=== PATIENT | male | born 1955 | race Caucasian/White ===

== ENCOUNTER 2022-04-18 06:08 | Observation (INO) ==
--- NOTE | 2022-03-28 09:15 | PAT Medication Instructions ---
Medication Instructions Date of Service March 28, 2022 Home Medications ascorbic acid (vitamin C) 500 mg tablet (Vitamin C) 500 mg PO QAM aspirin 81 mg tablet,delayed release 81 mg PO Q OTHER DAY atenolol 25 mg tablet 25 mg PO QAM bupropion HCl 150 mg tablet,12 hr sustained-release 150 mg PO QAM famotidine 20 mg tablet 20 mg PO BID loratadine 10 mg tablet 10 mg PO QAM multivitamin 1 tab PO QAM losartan 25 mg tablet 25 mg PO QAM ASK your prescriber and surgeon aspirin 81 mg tablet,delayed release 81 mg PO Q OTHER DAY DO NOT take the morning of surgery ascorbic acid (vitamin C) 500 mg tablet (Vitamin C) 500 mg PO QAM loratadine 10 mg tablet 10 mg PO QAM multivitamin 1 tab PO QAM losartan 25 mg tablet 25 mg PO QAM Take morning of surgery With a small sip of water, OTHERWISE NOTHING TO EAT OR DRINK AFTER MIDNIGHT: atenolol 25 mg tablet 25 mg PO QAM bupropion HCl 150 mg tablet,12 hr sustained-release 150 mg PO QAM famotidine 20 mg tablet 20 mg PO BID Take evening before surgery famotidine 20 mg tablet 20 mg PO BID Other Notes If you have any questions please call us at [phone] or [phone] or [phone] or [phone]
--- NOTE | 2022-04-04 11:26 | Anesthesiology Consultation ---
Date of Service April 04, 2022 Assessment & Plan (1) Encounter for pre-operative examination: - COVID screening: Per assessment on 04/04: No known COVID-19 positive contacts or current COVID-19 related symptoms. Travel screen negative x 2+ weeks. Patient vaccinated. Patient was Covid positive 02/15/22 (home test). Symptoms at time: severe headache, dry cough, mild fever, nasal congestion/head pressure, slight fatigue > resolved except occasional residual cough. Covid test done 04/04 ([facility]) was negative. - *Strong gag reflex* per pt - Positioning concern: Pt reports breakthrough acid reflux. Requests not laying completely flat when possible. Also requests preoperative acid reflux medication if possible. Chart Review Chart Review: Acceptable Risk for Surgery and Patient seen in Pre Admission Testing Teaching & Discussion Pre-Anesthesia Teaching/Discussion Notes: Instructed NPO after midnight before surgery,except medications with 15 cc of water. Medication instructions provided according to the PAT guidelines. History Surgery Operation Date: 04/18/22 07:45 Proposed Procedures p C5-C7 Anterior Cervical Discectomy and Fusion, Spinal Cord Monitoring - Jacob Claudio DO Height/Weight Height: 5 ft 7 in Weight: 87.5 kg Allergies Allergy/AdvReac Type Severity Reaction Status Date / Time indomethacin AdvReac Intermediate "Drunk" Verified 03/30/22 11:36 feeling Medications Home Medications Medication Instructions Recorded Confirmed Last Taken ascorbic acid (vitamin C) 500 mg 500 mg PO QAM 10/04/20 03/24/22 11/09/20 tablet (Vitamin C) aspirin 81 mg tablet,delayed 81 mg PO Q OTHER DAY 10/04/20 03/24/22 11/08/20 release atenolol 25 mg tablet 25 mg PO QAM 10/04/20 03/24/22 11/10/20 05:45 bupropion HCl 150 mg tablet,12 hr 150 mg PO QAM 10/04/20 03/24/22 11/09/20 sustained-release famotidine 20 mg tablet 20 mg PO BID 10/04/20 03/24/22 11/09/20 loratadine 10 mg tablet 10 mg PO QAM 10/04/20 03/24/22 11/09/20 multivitamin 1 tab PO QAM 10/04/20 03/24/22 11/09/20 losartan 25 mg tablet 25 mg PO QAM 03/24/22 03/24/22 Unknown Past Medical History Medical History (Updated 04/04/22 @ 11:35 by Kinjal Goldberg) Anxiety GERD (gastroesophageal reflux disease) Hiatal hernia History of COVID-19 Covid positive 02/15/22 (home test), Symptoms at time: severe headache, dry cough, mild fever, nasal congestion/head pressure, slight fatigue > resolved except occasional residual cough Covid positive 04/2021 Hyperlipidemia no meds Hypertension Schatzki's ring Exercise / Class Metabolic Activity II 4-5 Yardwork/Stairs/Walk up hill (one FS (no CP, no SOB)) Past Family History Family History Son Diabetes Other No family history of adverse response to anesthesia Past Surgical History Surgical History H/O bilateral inguinal hernia repair History of carpal tunnel surgery of right wrist History of cataract surgery R/L History of colonoscopy History of esophagogastroduodenoscopy (EGD) with dilation History of repair of rotator cuff R/L History of tooth extraction Hx of vasectomy Past Anesthesia History No Hx of Anesthesia Complications and No Family Hx of Anesthesia Complications History of PONV No Hx of PONV and Hx of Motion Sickness Social History Smoking Status: Never smoker Do You Dip or Chew Tobacco: No Hx Alcohol Use: No Hx Substance Use: No substance use type: does not use Review of Systems Residual rare dry cough since 01/2022 Covid infection. Patient denies chest pain, shortness of breath, dyspnea on exertion, fever, chills, wheezing, palpitations. Physical Exam Vital Signs VITALS BP 145/90 P 66 TEMP 98.7 SP02 98%RA RESP 16 PHYSICAL Significantly decreased cervical extension range of motion. Full TMJ range of motion. TMD 3 finger breaths Mallampati Score 3 Dentition: several missing sides/molars Lungs: clear throughout to auscultation Cardiac: regular rate and rhythm, no murmurs noted Spine: normal Carotid arteries: negative bruit Extremities: no edema Lab Results Anesthesia Preop Results Results Anesthesia Widget: WBC 7.56 K/ul (4.8-10.8) 04/04/22 Hgb 15.5 g/dl (14.0-18.0) 04/04/22 Hct 44.6 % (40.1-51.0) 04/04/22 Plt 330 K/uL (130-400) 04/04/22 Na 136 mmol/L (136-145) 04/04/22 K 4.2 mmol/L (3.5-5.1) 04/04/22 Cl 105 mmol/L (98-107) 04/04/22 CO2 25 mmol/L (21-32) 04/04/22 BUN 20 mg/dl (6-23) 04/04/22 Creat 0.95 mg/dl (0.6-1.4) 04/04/22 Glucose Level 98 mg/dl (70-99(Fasting)) 04/04/22 PT 10.0 Seconds (9.0-12.0) 04/04/22 PTT 25.9 Seconds (21.0-31.0) 04/04/22 INR 0.9 (0.9-1.1) 04/04/22 Urine Color Yellow 04/04/22 Urine Appearance Clear (Clear) 04/04/22 Urine pH 7.0 (4.5-7.5) 04/04/22 Urine Specific [place] 1.020 (1.000-1.030) 04/04/22 Urine Protein Negative (Negative) 04/04/22 Urine Glucose (UA) Negative (Negative) 04/04/22 Urine Ketones Negative (Negative) 04/04/22 Urine Blood Negative (Negative) 04/04/22 Urine Nitrite Negative (Negative) 04/04/22 Urine Bilirubin Negative (Negative) 04/04/22 Urine Urobilinogen Negative (Negative) 04/04/22 Urine Leukocyte Esterase Negative (Negative) 04/04/22 Blood Type A Positive 04/04/22 Antibody Screen NEGATIVE 04/04/22 Testing Electrocardiogram Date: 04/04/22 Findings: + NSR @ (61) Chest X-Ray Date: 04/04/22 FINDINGS: PA and lateral chest radiographs are compared to study dated 04/12/2012. The cardiomediastinal silhouette is unremarkable noting atherosclerotic calcification of the thoracic aorta. The lungs and pleural spaces are clear. There is no pneumothorax. The bony thorax appears intact. IMPRESSION: No active disease in the chest. Stress Test Date: 06/02/20 Type: exercise Treadmill exercise test was normal. Mild hypertension was noted at baseline, with appropriate blood pressure response to exercise. 15 minutes. Occasional PACs with stress. COVID-19 Risk Screen Screening Information COVID-19 Screen Date: 04/04/22 Exposure 21 Days Family/Household +COVID Last 21 Days: No Exposure 10 Days Any COVID Exposure Last 10 Days: No Symptoms Last 10 Days Experienced COVID Sx Last 10 Days: No + COVID 0-90 Days COVID + in Last 0-90 Days: Yes + COVID Test 0-10 Day: No + COVID Test 11-90 Day: Yes
[~2022-04-18 06:08] MED LIST: ACETAMINOPHEN 500 MG TAB PO SCH; CeleBREX 200 MG CAP PO SCH; GABAPENTIN 600 MG DOSE PO SCH; LR 15ML/HR IV SCH; ceFAZolin 2000MG 2,000 MG/15 ML SYR IV SCH
[2022-04-18] MEDS ORDERED: ROCURONIUM BROMIDE 10 MG/ML 5 ML VIAL IV ONE ×5 (06:55→06:56)
[2022-04-18] MEDS ORDERED: LIDOCAINE 2% 20 MG/ML 5 ML SYR IV ONE (06:55)
[2022-04-18] MEDS ORDERED: PROPOFOL IV EMULSION 10 MG/ML 20 ML VIAL IV ONE (06:55)
[2022-04-18] MEDS ORDERED: MIDAZOLAM HCL 1 MG/ML 2ML VIAL ONE (06:56)
[2022-04-18] MEDS ORDERED: fentaNYL citrate 100 MCG/2 ML VIAL ONE (06:56)
[2022-04-18] MEDS ORDERED: ceFAZolin 330 MG/ML 1 GM VIAL ONE (07:07)
[2022-04-18] MEDS ORDERED: KETAMINE 50 MG/5 ML SYRINGE ONE (07:29)
[2022-04-18] MEDS ORDERED: HYDROmorphone INJ 1 MG/ML SYRINGE IV PRN ×2 (07:31→11:22)
[2022-04-18] MEDS ORDERED: ATROPINE SULFATE 0.1 MG/ML 10ML SYR IV PRN (07:31)
[2022-04-18] MEDS ORDERED: ONDANSETRON INJ 2 MG/ML 2 ML VIAL IV PRN ×2 (07:31→11:22)
[2022-04-18] MEDS ORDERED: ePHEDrine sulfate 50 MG/ML AMP IV PRN (07:31)
--- NOTE | 2022-04-18 07:35 | History & Physical Bridge Note ---
Date of Service April 18, 2022 History & Physical Bridge Note I have examined the patient, reviewed the History & Physical and in the interval since the performance of the History & Physical I have noted the following changes of clinical significance: no changes noted
--- NOTE | 2022-04-18 07:36 | History & Physical Report ---
Date of Service April 18, 2022 Assessment & Plan (1) Herniation of cervical intervertebral disc with radiculopathy: Plan: C5-C7 anterior cervical discectomy and fusion History of Present Illness Chief Complaint: Neck and arm pain Primary Care Provider: Ismael Grossman MD This is a 66-year-old male presents with chronic persistent neck and arm symptoms with failed course of nonoperative care is here for surgical invention. Allergies Allergy/AdvReac Type Severity Reaction Status Date / Time indomethacin AdvReac Intermediate "Drunk" Verified 04/18/22 06:36 feeling Home Medications Medication Instructions Recorded Confirmed Type ascorbic acid (vitamin C) 500 mg 500 mg PO QAM 10/04/20 04/18/22 History tablet (Vitamin C) aspirin 81 mg tablet,delayed 81 mg PO Q OTHER DAY 10/04/20 04/18/22 History release atenolol 25 mg tablet 25 mg PO QAM 10/04/20 04/18/22 History bupropion HCl 150 mg tablet,12 hr 150 mg PO QAM 10/04/20 04/18/22 History sustained-release famotidine 20 mg tablet 20 mg PO BID 10/04/20 04/18/22 History loratadine 10 mg tablet 10 mg PO QAM 10/04/20 04/18/22 History multivitamin 1 tab PO QAM 10/04/20 04/18/22 History losartan 25 mg tablet 25 mg PO QAM 03/24/22 04/18/22 History Past Med/Surg History Medical History (Updated 04/18/22 @ 07:35 by Jacob Claudio DO) Anxiety GERD (gastroesophageal reflux disease) Hiatal hernia History of COVID-19 Covid positive 02/15/22 (home test), Symptoms at time: severe headache, dry cough, mild fever, nasal congestion/head pressure, slight fatigue > resolved except occasional residual cough Covid positive 04/2021 Hyperlipidemia no meds Hypertension Schatzki's ring Surgical History H/O bilateral inguinal hernia repair History of carpal tunnel surgery of right wrist History of cataract surgery R/L History of colonoscopy History of esophagogastroduodenoscopy (EGD) with dilation History of repair of rotator cuff R/L History of tooth extraction Hx of vasectomy Family History Son Diabetes Other No family history of adverse response to anesthesia Social History Smoking Status: Never smoker Second Hand Exposure: No; Do You Dip or Chew Tobacco: No; Tobacco Cessation Education Requested by Patient: No Hx Alcohol Use: No Hx Substance Use: No Preferred Language: Lao Communication Ability: Effective Kitchenhand Required: No Beliefs That Will Affect Care: None Current Living Situation: Spouse Other Information That Helps Us Care for You: No Feels Safe at Home: Yes Safety Concerns: Feels Safe At This Time Assistive Devices: Glasses Physical Exam Physical Exam: Patient is alert and oriented Heart regular rhythm Lungs clear Results & Data Results & Data ([facility]) Vital Signs (Past 12 Hours) Vital Signs Temp Pulse Resp BP Pulse Ox O2 Del Method 04/18/22 06:39 36.6 C 60 20 187/107 H 99 Room Air
[2022-04-18] MEDS ORDERED: DexMEDEtomidine HCL IV 100 MCG/ML VIAL IV ONE (07:44)
[2022-04-18] MEDS ORDERED: ONDANSETRON INJ 2 MG/ML 2 ML VIAL ONE (08:34)
[2022-04-18] MEDS ORDERED: DEXAMETHASONE SOD INJ 4 MG/ML VIAL ONE (08:34)
[2022-04-18] MEDS ORDERED: FLOSEAL HEMOSTATIC MATRIX 10ML TOP ONE (08:40)
[2022-04-18] MEDS ORDERED: GLYCOPYRROLATE 0.2 MG/ML VIAL ONE (09:14)
[2022-04-18] MEDS ORDERED: NEOSTIGMINE METHYLSULFATE 1 MG/ML 10ML VIAL ONE (09:14)
--- NOTE | 2022-04-18 09:25 | Operative Report ---
Post Operative Report Pre & Post Diagnosis Operation Date: 04/18/22 07:45 Pre-Op Diagnosis: Herniation of Cervical Intervertebral Disc with Radiculopathy Post-Op Diagnosis: Herniation of Cervical Intervertebral Disc with Radiculopathy I identified the patient and participated in the time-out.: Yes Procedure Operation Date: 04/18/22 07:45 Actual Procedures #1 anterior cervical discectomy with bilateral foraminotomies C5-C6 C6-C7. #2 anterior cervical arthrodesis C5-C6 C6-C7. #3 placement of Spira 9 mm cage at C5-C6 and 8 mm cage at C6-C7 both filled with I factor. #4 placement of Elan plate and screws from C5-C7. Surgeon Jacob Claudio, Aurist Serena Grey Estimated Blood Loss 10 Findings Consistent with Post-Op Diagnosis Specimens None Indications This is a 66-year-old male who presents above-mentioned diagnosis after failed course of nonoperative care is here for the above-mentioned procedure. Description of Procedure Patient was met with identified informed consent obtained. Patient was then taken to the operative suite underwent ablation placed in supine position the [place] with head [place] head over. All bony prominences well-padded eyes inspected to ensure no external pressure placed upon the. This point anterior cervical spine was prepped and draped no sterile fashion. The assistance of fluoroscopy identified the C C6 vertebral body and a transverse incision was placed on the right anterior aspect of the cervical spine overlying this region. Blunt dissection with assistance of bipolar electrocautery was then performed down to and exposing the anterior cervical spine from c 5 to C7. self-retaining retractors placed. Then performed a complete discectomy of C5-C6 out to the uncovertebral joints bilaterally. [place] distracting pins utilized to assist in visualization. Removed the entire disc out and posterior annular fibers and performed bilateral foraminotomies. Endplates were then burred to subcortical any bone and 9 mm spiral cage filled with I factor tapped in position. Then proceeded to C6-C7. Again complete discectomy performed out to the uncovertebral joints bilaterally. And then removed all posterior fibers longitudinal ligament and again bilateral foraminotomies performed. Endplates burred to subcortical bleeding bone and 8 mm spiral cage filled I factor tapped in position. Distracting apparatus was removed all anterior osteophytes burred to a smooth cortical surface and a Elan plate and screws applied with the assistance of fluoroscopy. The incision was then copiously irrigated explored to ensure no damage to surrounding structures remaining bleeding. 10 round MATHEUS drain inserted. The incision was then closed with 2 Vicryl in the fascia and 4 Monocryl for final skin closure. Steri-Strip sterile dressings placed. Patient waken taken to PACU in stable condition. Please note spinal cord monitoring was utilized at the procedure no changes noted. Lastly Serena Grey was present at the entire surgeon while the patient positioning complex portions of the surgery and final skin closure. I attest to the content of the Intraoperative Record and any orders documented therein. Any exceptions are noted below.
--- NOTE | 2022-04-18 09:50 | Fluoroscopy Report ---
FL cervical 2-3V HISTORY: 66 years-old Male ACDF C5-C7 chronic neck pain COMPARISON: None TECHNIQUE: 3 spot fluoroscopic images of the cervical spine were obtained following completion of the surgery utilizing 16.3 seconds fluoroscopy time FINDINGS: Anterior plate and screw fusion hardware with discectomy changes noted at what appears to be the C5-C 7 levels, however exact numbering is not definitive secondary to overlying soft tissue and positionin g. A surgical sponge is noted within the anterior operative bed along with an endotracheal tube and s urgical drainage catheter. IMPRESSION: Fluoroscopic assistance as above. ACT 112: Negative or not required by law. The above report was generated using voice recognition software. It may contain grammatical, syntax o r spelling errors. Electronically signed by: Marito Landrum M.D. 04/18/2022 9:48 AM
[2022-04-18] MEDS: fentaNYL citrate 100 MCG/2 ML VIAL IV PRN ×2 (10:02→10:07)
[2022-04-18] MEDS ORDERED: ePHEDrine sulfate 50 MG/ML SYR ONE (10:18)
[2022-04-18] MEDS ORDERED: traMADol HCL 50 MG TABLET PO PRN (11:22)
[2022-04-18] MEDS ORDERED: ASPIRIN 81 MG ECTAB PO SCH (11:22)
[2022-04-18] MEDS ORDERED: PROMETHAZINE HCL 12.5 MG in SODIUM CHLORIDE 0.9% 50 ML IV PRN (11:22)
[2022-04-18] MEDS ORDERED: METOCLOPRAMIDE HCL INJ 5 MG/ML 2 ML VIAL IV PRN (11:22)
[2022-04-18] MEDS ORDERED: ONDANSETRON 4 MG OD TAB PO PRN (11:22)
[2022-04-18] MEDS ORDERED: diphenhydrAMINE Capsule 25 MG CAP PO PRN (11:22)
[2022-04-18] MEDS ORDERED: LORazepam 0.5 MG TAB PO PRN (11:22)
[2022-04-18] MEDS ORDERED: RACEPINEPHRINE 2.25% NEBU SOLN 0.5 ML VIAL INH PRN (11:22)
[2022-04-18] MEDS ORDERED: SOD PHOSPHATE/SOD BIPHOSPHATE ENEMA 132 ML BTL PR PRN (11:22)
[2022-04-18] MEDS ORDERED: ALUMINUM/MAGNESIUM SUSP 30 ML UDC PO PRN (11:22)
[2022-04-18] MEDS ORDERED: HYDROmorphone INJ 0.5 MG/0.5 ML SYR IV PRN (11:22)
[2022-04-18] MEDS ORDERED: FAMOTIDINE 20 MG TAB PO PRN (11:22)
[2022-04-18] MEDS ORDERED: bisacodyL 10 MG SUPP PR PRN (11:22)
[2022-04-18] MEDS ORDERED: ACETAMINOPHEN 1,000 MG/100 ML VIAL IV PRN (11:22)
[2022-04-18] MEDS ORDERED: hydrOXYzine HCl 25 MG TAB PO PRN (11:22)
[2022-04-18] MEDS ORDERED: ACETAMINOPHEN 500 MG TAB PO PRN (11:22)
[2022-04-18] MEDS ORDERED: NALOXONE HCL 0.4 MG/1 ML VIAL/CARP IV PRN (11:22)
[2022-04-18] MEDS ORDERED: MAGNESIUM HYDROXIDE SUSP 30 ML UDC PO PRN (11:22)
[2022-04-18] MEDS ORDERED: LORazepam 0.5 MG in SYRINGE 0 ML IV PRN (11:22)
[2022-04-18] MEDS ORDERED: dexAMETHasone 8 MG in SYRINGE 0 ML IV PRN (11:22)
--- NOTE | 2022-04-18 11:53 | Hospitalist Consultation ---
Date of Consultation April 18, 2022 Assessment & Plan (1) Herniation of cervical intervertebral disc with radiculopathy: - Pain management, bowel regimen and DVT ppx per the primary team - PT/OT consults, pt is planning on outpatient therapy - Follow am CBC to monitor for acute blood loss - Adjust tylenol to scheduled, discussed prn pain medication options with the patient and at bedside. (2) Hypertension: - Cont Losartan 25 mg QAM (3) Hyperlipidemia: - Last lipid panel reviewed with elevated triglycerides of 333, cholesterol 201, HDL 39 and LDL 122 from 01/05/22 (4) GERD (gastroesophageal reflux disease): - Cont omeprazole (5) Anxiety: - Cont wellbutrin 150 mg daily DVT ppx: CODE: Full code Dispo: From home, discharge per primary team Thank you for involving us in the care of Mr. Son. Please do not hesitate to call with questions or concerns. At this time medicine service will follow along. Supervising Physician Co-Signing Physician Notes Pt is a 66 y/o M with hx of HTN, Prediabetes, GERD and Cervical disc herniation with radiculopathy consulted for medical co-management. Pt is admitted for cervical discectomy and fusion. 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 Claudio Attending Physician: Jacob Claudio, DO History of Present Illness This is a 66 yo M with PMhx of HTN, HLD, hiatal hernia, GERD, anxiety, Schatzki's ring who presented for C5-C7 anterior cervical discectomy and fusion by Dr. Claudio on 04/18/22. He is doing well after having surgery but states that he is having some pain in his neck, rates it as a 3/10 and thinks that it is somewhat due to his intubation tube as it goes down his neck and feels it mostly when he is swallowing. He has trialed few sips of water and denies any difficulty. Denies any issues with breathing, is currently on 2 L via NC but does not wear any baseline oxygen. His last bowel movement was this morning prior to surgery. Denies any other acute complaints. Allergies Allergy/AdvReac Type Severity Reaction Status Date / Time indomethacin AdvReac Intermediate "Drunk" Verified 04/18/22 06:36 feeling Home Medications Medication Instructions Recorded Confirmed Type ascorbic acid (vitamin C) 500 mg 500 mg PO QAM 10/04/20 04/18/22 History tablet (Vitamin C) aspirin 81 mg tablet,delayed 81 mg PO Q OTHER DAY 10/04/20 04/18/22 History release atenolol 25 mg tablet 25 mg PO QAM 10/04/20 04/18/22 History bupropion HCl 150 mg tablet,12 hr 150 mg PO QAM 10/04/20 04/18/22 History sustained-release famotidine 20 mg tablet 20 mg PO BID 10/04/20 04/18/22 History loratadine 10 mg tablet 10 mg PO QAM 10/04/20 04/18/22 History multivitamin 1 tab PO QAM 10/04/20 04/18/22 History losartan 25 mg tablet 25 mg PO QAM 03/24/22 04/18/22 History gabapentin 300 mg capsule 300 mg PO TID 04/18/22 04/18/22 History Patient History Medical History (Updated 04/18/22 @ 11:46 by Jennifer Mendoza PA-C) Anxiety GERD (gastroesophageal reflux disease) Hiatal hernia History of COVID-19 Covid positive 02/15/22 (home test), Symptoms at time: severe headache, dry cough, mild fever, nasal congestion/head pressure, slight fatigue > resolved except occasional residual cough Covid positive 04/2021 Hyperlipidemia no meds Hypertension Schatzki's ring Surgical History H/O bilateral inguinal hernia repair History of carpal tunnel surgery of right wrist History of cataract surgery R/L History of colonoscopy History of esophagogastroduodenoscopy (EGD) with dilation History of repair of rotator cuff R/L History of tooth extraction Hx of vasectomy Family History Son Diabetes Other No family history of adverse response to anesthesia Social History Smoking Status: Never smoker Second Hand Exposure: No; Do You Dip or Chew Tobacco: No; Tobacco Cessation Education Requested by Patient: No Hx Alcohol Use: No Hx Substance Use: No Preferred Language: Macedonian Communication Ability: Effective Special Education Paraeducator Required: No Beliefs That Will Affect Care: None Current Living Situation: Spouse Other Information That Helps Us Care for You: No Feels Safe at Home: Yes Safety Concerns: Feels Safe At This Time Assistive Devices: Glasses Review of Systems Review of Systems: Constitutional: No fever, sweats or chills Eyes: No diplopia, no worsening or blurred vision ENT: normal hearing, no trouble swallowing Respiratory: No cough, sputum, dyspnea at rest or on exertion Cardiovascular: No chest pain, tightness or palpitations Abdomen: No pain, nausea, vomiting, diarrhea or constipation Musculoskeletal: No joint pain, calf pain, swelling Neurologic: No weakness, numbness/tingling, or balance problems Psychiatric: No anxiety or depression Skin: No rash or itch Physical Exam Physical Exam: General: awake, alert, no apparent distress Head: Normocephalic, atraumatic ENT: PERRL, EOMI, no pharyngeal exudate, mucous membranes moist, Cervical surgical site dressing c.d.i, [place] drain intact, minimal outs in tubing Chest: Clear to auscultation, on room air, no adventitious breath sounds Cardiac: Regular rate and rhythm, no murmur, no JVD, normal peripheral pulses, good capillary refill Abdominal: NABS x 4 quadrants, soft, nondistended, nontender to palpation, no rebound or guarding Extremities: Normal inspection, no peripheral edema or erythema, calfs nontender to palpation Psych: Normal mood and affect Neuro: AAO x 3, strength intact bilaterally and rated 5/5, no motor deficits, speech is clear, no peripheral sensory deficits Results & Data Results & Data ([facility]) Vital Signs (Past 12 Hours) Vital Signs Temp Pulse Pulse Resp BP BP Pulse Ox 04/18/22 11:01 54 L 16 94 04/18/22 10:45 36.5 C 65 18 145/85 H 94 04/18/22 10:35 68 20 136/83 95 04/18/22 10:25 63 21 135/90 94 04/18/22 10:15 59 L 18 146/93 H 95 04/18/22 10:05 62 16 133/88 93 04/18/22 09:55 65 16 146/93 H 96 04/18/22 09:45 64 19 143/86 H 95 04/18/22 09:35 36.0 C L 72 14 157/110 H 93 04/18/22 06:39 36.6 C 60 20 187/107 H 99 O2 Del Method O2 Flow Rate 04/18/22 11:01 Nasal Cannula 2 04/18/22 10:45 Nasal Cannula 2 04/18/22 10:35 Nasal Cannula 2 04/18/22 10:25 Nasal Cannula 2 04/18/22 10:15 Nasal Cannula 2 04/18/22 10:05 Nasal Cannula 2 04/18/22 09:55 Oxymask 4 04/18/22 09:45 Oxymask 4 04/18/22 09:35 Oxymask 4 04/18/22 06:39 Room Air Laboratory Results 04/18/22 Unknown SARS-CoV-2, RNA, NAAT NEGATIVE
--- NOTE | 2022-04-18 13:56 | Anesthesiology Progress Note ---
Date of Service April 18, 2022 Anesthesia Post Procedure Vital Signs Vital Signs: Temp Pulse Pulse Resp BP BP Pulse Ox 04/18/22 11:30 35.7 C L 63 16 139/84 97 04/18/22 11:00 04/18/22 11:00 36.4 C L 62 16 109/72 94 04/18/22 13:00 36.4 C L 67 16 151/97 H 94 04/18/22 12:11 36.4 C L 66 18 152/99 H 95 04/18/22 11:01 54 L 16 94 04/18/22 10:45 36.5 C 65 18 145/85 H 94 04/18/22 10:35 68 20 136/83 95 04/18/22 10:25 63 21 135/90 94 04/18/22 10:15 59 L 18 146/93 H 95 04/18/22 10:05 62 16 133/88 93 04/18/22 09:55 65 16 146/93 H 96 04/18/22 09:45 64 19 143/86 H 95 04/18/22 09:35 36.0 C L 72 14 157/110 H 93 04/18/22 06:39 36.6 C 60 20 187/107 H 99 O2 Del Method O2 Flow Rate 04/18/22 11:30 Nasal Cannula 2 04/18/22 11:00 Nasal Cannula 2 04/18/22 11:00 Nasal Cannula 2 04/18/22 13:00 Nasal Cannula 2 04/18/22 12:11 04/18/22 11:01 Nasal Cannula 2 04/18/22 10:45 Nasal Cannula 2 04/18/22 10:35 Nasal Cannula 2 04/18/22 10:25 Nasal Cannula 2 04/18/22 10:15 Nasal Cannula 2 04/18/22 10:05 Nasal Cannula 2 04/18/22 09:55 Oxymask 4 04/18/22 09:45 Oxymask 4 04/18/22 09:35 Oxymask 4 04/18/22 06:39 Room Air Pain Intensity Anterior Neck: Pain Intensity: 4 Transfer of Care Handoff Completed per policy Notes Mental Status: alert / awake / arousable and participated in evaluation Patient Amnestic to Procedure: Yes Nausea / Vomiting: adequately controlled Pain: adequately controlled Airway Patency, RR, SpO2: stable & adequate BP & HR: stable & adequate Hydration State: stable & adequate Anesthetic Complications: no major complications apparent
[2022-04-18] MEDS: ACETAMINOPHEN 500 MG TAB PO SCH ×2 (14:09→19:56)
[2022-04-18] MEDS: oxyCODONE HCL IR 5 MG TAB (IMMEDIATE RELEASE) PO PRN ×2 (14:09→21:13)
[2022-04-18] MEDS: ceFAZolin 2000MG 2,000 MG/15 ML SYR IV SCH ×2 (14:59→23:16)
[2022-04-18] MEDS: LACTATED RINGER'S 1,000 ML IV SCH (17:02)
[2022-04-18] MEDS ORDERED: DOCUSATE SODIUM/SENNA 50/8.6MG TAB PO SCH (21:00)
[2022-04-18] MEDS: FAMOTIDINE 20 MG TAB PO SCH (21:11)
[2022-04-19] MEDS: oxyCODONE HCL IR 5 MG TAB (IMMEDIATE RELEASE) PO PRN (01:17)
[2022-04-19] MEDS ORDERED: COUGH DROP (SUGAR FREE) LOZ 24 LOZ/1 BOX BUCCAL ONE (01:18)
[2022-04-19] MEDS: LACTATED RINGER'S 1,000 ML IV SCH (03:01)
[2022-04-19] MEDS: ACETAMINOPHEN 500 MG TAB PO SCH (04:54)
[2022-04-19] MEDS ORDERED: POLYETHYLENE (MIRALAX) 17 GM PACK PO SCH (06:00)
--- NOTE | 2022-04-19 08:19 | Discharge Summary ---
Date of Service April 19, 2022 Admission HPI Per Admitting Provider This is a 66-year-old male presents with chronic persistent neck and arm symptoms with failed course of nonoperative care is here for surgical invention. Admission Exam (Per Admitting) Constitutional well developed Eyes normal visual herrera by confrontation ENMT external ear and nose normal, oropharynx normal Neck normal visual inspection Respiratory normal respiratory effort Cardiovascular Extremities: normal capillary refill Gastrointestinal (Abdomen) Inspection/Auscultation: abdomen normal to inspection Musculoskeletal Spine: + limited cervical ROM Extremities: extremities normal to inspection and strength 5/5 throughout Skin no rashes, warm and dry Neurologic normal touch/pain/proprioception and moves all extremities Psychiatric A+Ox3, euthymic affect Eye Contact: good eye contact Speech: normal rate/rhythm/volume of speech Discharge Data Consultations 04/18/22 11:22 Consult Hospitalist Routine Procedures Performed Operation Date: 04/18/22 07:45 Actual Procedures p C5-C7 Anterior Cervical Discectomy and Fusion, Spinal Cord Monitoring(Not Applicable) - Jacob Claudio, DO Hospital Course (1) Herniation of cervical intervertebral disc with radiculopathy: Discharge Instructions ACTIVITY RECOMMENDATIONS: SELF CARE INSTRUCTIONS AFTER CERVICAL FUSIONS 1. No smoking. Smoking drastically decreases the chance of a solid fusion. 2. No bending, lifting more than 5 pounds, or twisting (roll like a log when turning in bed). 3. You may shower 3 days after surgery. Thoroughly dry wound. Do not soak in the tub. 4. Cervical collar: Must be worn at all times including sleeping. You may remove the brace only to bath, eat and if you are sitting in a recliner. 5. Please walk as much as you can for exercise. Gradually increase the distance that you walk as your endurance increases. SPECIAL CARE INSTRUCTIONS: VERY IMPORTANT TO READ AND REVIEW A. Do not take any anti-inflammatory medications (i.e. Indocin, Advil, Aspirin, Naprosyn, Aleve, Motrin, etc.) as these may inhibit the chance of a solid fusion. Tylenol is okay to take. B. Your surgical incision has been closed with a cosmetic suture under the skin that will dissolve in about 6 weeks. In 14 days, you can use a pair of clean scissors and cut the suture that is left outside of the skin at the ends of your incision. C. Complications are uncommon, but please contact us if you have any signs or symptoms of: 1. wound infection (fever higher than 102.5 degrees F, redness, separation of wound, drainage, or increasing pain from the incision) 2. blood clots in legs (pain, swelling, redness and warmth in legs) 3. urinary tract infection (fever higher than 102.5 degrees, burning upon urination or increased frequency of urination) 4. nerve problems (inability to walk on your toes or heels, numbness, loss of bowel or bladder control) 5. any other symptoms that concern you. D. Please call the office at if you have any concerns or questions about your operation or recovery. MANAGING PAIN AFTER SPINAL SURGERY 1. Narcotic medication is intended for short-term use and will be provided for surgical pain. Surgical pain usually lasts for a period of 4-6 weeks. Narcotic medication includes Percocet, Vicodin, Darvocet, Tylenol #3 or Lortab. 2. Longer-term pain is more appropriately treated with non-narcotic medication such as Tylenol ES. 3. Muscle spasm is not appropriately treated with narcotics. Muscle relaxers such as Soma, Flexeril or Skelaxin can be used along with Tylenol ES. 4. Remember that we all live with some "aches and pains". This is not unusual or uncommon after an injury or as we get older. 5. We will provide appropriate medication within the normal guidelines of their prescribed use. We will also be very cautious and aware of potential abuse and extended duration of patients' medication needs. 6. Please allow 2-3 days to process refills. Prescriptions will not be mailed but must be picked up at the office. FOLLOW UP VISIT: Keep your scheduled follow-up appointment. Any questions, please call the office at .
[2022-04-19] MEDS: FAMOTIDINE 20 MG TAB PO SCH (08:27)
[2022-04-19] MEDS ORDERED: ASCORBIC ACID 500 MG TAB PO SCH (09:00)
[2022-04-19] MEDS ORDERED: ATENOLOL 25 MG TABLET PO SCH (09:00)
[2022-04-19] MEDS ORDERED: buPROPion SR 150 MG TABCR PO SCH (09:00)
[2022-04-19] MEDS ORDERED: dexAMETHasone 6 MG in SYRINGE 0 ML IV SCH (09:00)
[2022-04-19] MEDS ORDERED: MULTIVITAMIN TAB PO SCH (09:00)
[2022-04-19] MEDS ORDERED: LOSARTAN POTASSIUM 25 MG TAB PO SCH (09:00)
[2022-04-19] MEDS ORDERED: LORATADINE 10 MG TAB PO SCH (09:00)
== END 2022-04-19 13:09 | disposition home or self-care (01) ==
LOC: ASU 06:08 → 3E 09:29 → INTOOBSV 09:29
DX: Z79.82 Long term (current) use of aspirin; M50.122 Cervical disc disorder at C5-C6 level with radiculopathy; M50.123 Cervical disc disorder at C6-C7 level with radiculopathy; E78.5 Hyperlipidemia, unspecified; Z88.8 Allergy status to other drugs, medicaments and biological substances; I10 Essential (primary) hypertension; K21.9 Gastro-esophageal reflux disease without esophagitis; Z79.899 Other long term (current) drug therapy; Z86.16 Personal history of COVID-19